=== PATIENT | male | born 1965 | race Two or more races ===

== ENCOUNTER 2016-10-02 10:30 | Emergency (ER) | payer MEDICAID ==
[~2016-10-02] VITALS: Ht 175.3 cm; Wt 99.8 kg
[2016-10-02 12:19] VITALS: BP 151/93
[2016-10-02] MEDS ORDERED: TETANUS-DIPTH-ACEL PERTUSSIS 0.5ML SYRG IM ONE (12:30)
[2016-10-02] MEDS ORDERED: KETOROLAC TROMETH 60MG/2ML VIAL IM ONE (12:30)
== END 2016-10-02 12:52 | disposition home or self-care (01) ==
LOC: ER 10:38
DX: S01.01XA Laceration without foreign body of scalp, initial encounter (principal); E11.9 Type 2 diabetes mellitus without complications; E78.5 Hyperlipidemia, unspecified; I10 Essential (primary) hypertension; Z86.73 Personal history of transient ischemic attack (TIA), and cerebral infarction without residual deficits; W22.8XXA Striking against or struck by other objects, initial encounter; Y93.89 Activity, other specified; Y99.9 Unspecified external cause status; Y92.89 Other specified places as the place of occurrence of the external cause; Z23 Encounter for immunization
CPT/HCPCS: 12002; 90471; 90715; 96372; 99284; J1885

== ENCOUNTER 2016-10-05 09:30 | Emergency (ER) | payer MEDICAID ==
[~2016-10-05] VITALS: Ht 175.3 cm; Wt 99.8 kg
[2016-10-05 09:41] VITALS: BP 147/99
== END 2016-10-05 12:08 | disposition home or self-care (01) ==
LOC: ER 09:36
DX: S01.01XD Laceration without foreign body of scalp, subsequent encounter (principal); E11.9 Type 2 diabetes mellitus without complications; I10 Essential (primary) hypertension; Z86.73 Personal history of transient ischemic attack (TIA), and cerebral infarction without residual deficits; X58.XXXD Exposure to other specified factors, subsequent encounter; Y93.89 Activity, other specified; Y99.8 Other external cause status; Y92.89 Other specified places as the place of occurrence of the external cause

== ENCOUNTER 2017-05-15 13:38 | Inpatient (IN) | payer MEDICAID ==
[~2017-05-15] VITALS: Ht 177.8 cm; Wt 103.2 kg
[2017-05-15] MEDS ORDERED: hydrALAZINE HCL 20 MG/ML VL IV ONE (14:30)
[2017-05-15] MEDS ORDERED: MORPHINE SULF INJ 2 MG/ML SYRINGE 1ML IV ONE (14:30)
[2017-05-15] MEDS ORDERED: ONDANSETRON HCL 4 MG/2 ML VIAL IV ONE (14:30)
[2017-05-15] MEDS ORDERED: PANTOPRAZOLE 40 MG/10 ML VIAL IV ONE (17:00)
[2017-05-15] MEDS ORDERED: HYDROcodone-ACET 5/325MG TAB PO PRN (17:00)
[2017-05-15] MEDS ORDERED: LISINOPRIL 10 MG TAB PO ONE (17:00)
[2017-05-15] MEDS ORDERED: DEXTROSE (50%) 50ML SYRG IV PRN (17:00)
[2017-05-15] MEDS ORDERED: MORPHINE SULF INJ 2 MG/ML SYRINGE 1ML IV PRN (17:00)
[2017-05-15] MEDS ORDERED: ONDANSETRON HCL 4 MG/2 ML VIAL IV PRN (17:00)
[2017-05-15 17:52] LABS: Basophils # (auto) 0.1 uL; Basophils % (auto) 0.8 % (0.0-2.0); Eosinophils # (auto) 0.1 uL; Eosinophils % (auto) 1.5 % (0.0-7.0); Hemoglobin 14.2 g/dL (13.5-17.5); Lymphocytes # (auto) 1.8 uL; Lymphocytes % (auto) 28.7 % (10.0-50.0); Mean Corpuscular Hemoglobin 29.1 pg (28.0-32.0); Mean Corpuscular Hgb Conc. 33.9 g/dL (32.0-36.0); Mean Corpuscular Volume 85.8 fL (80.0-100.0); Monocytes # (auto) 0.5 uL; Neutrophils # (auto) 3.8 uL; Nucleated Red Blood Cells % 0.1 %; Platelet Count (auto) 226 10^3/uL (140-450); Red Cell Distribution Width 13.6 % (11.8-14.3); White Blood Cell 6.3 10^3/uL (4.4-10.8)
[2017-05-15 18:05] LABS: INR 0.95 (0.9-1.15); Partial Thromboplastin Time 26.8 sec (22.64-33.71); Prothrombin Time 10.4 sec (9.37-12.3)
[2017-05-15 18:12] LABS: Albumin 3.3 g/dL (3.4-5.0); Alkaline Phosphatase 107 U/L (45-117); Amylase 53 U/L (25-115); Anion Gap 8 (5-15); Aspartate Aminotransferase 12 U/L (15-37); BUN/Creatinine Ratio 15.9; Bilirubin, Total 0.3 mg/dL (0.2-1.0); Blood Urea Nitrogen 13 mg/dL (7-18); Calcium 8.7 mg/dL (8.5-10.1); Carbon Dioxide 26 mmol/L (21-32); Chloride 103 mmol/L (98-107); GFR African American 126 mL/min; GFR Non-African American 104 mL/min; Glucose 240 mg/dL (74-106); Potassium 3.8 mmol/L (3.5-5.1); Sodium 137 mmol/L (136-145); Total Protein 7.1 g/dL (6.4-8.2)
[2017-05-15] MEDS: ACCU-CHEK COMFORT CURVE STRIP VI SCH (18:31)
[2017-05-15] MEDS: InsuLIN REG 1unit/0.01ml Soln (100units/ml) SC SCH (18:44)
[2017-05-15 20:00] VITALS: BP 146/96
[2017-05-15 20:30] VITALS: BP 146/96
[2017-05-15 22:00] VITALS: BP 116/74
[2017-05-16] MEDS: ACCU-CHEK COMFORT CURVE STRIP VI SCH ×5 (00:17→23:35)
[2017-05-16] MEDS: InsuLIN REG 1unit/0.01ml Soln (100units/ml) SC SCH ×5 (00:31→23:36)
[2017-05-16 05:00] VITALS: BP 106/73
[2017-05-16 06:23] LABS: Basophils # (auto) 0 uL; Basophils % (auto) 0.8 % (0.0-2.0); Eosinophils # (auto) 0.1 uL; Eosinophils % (auto) 1.8 % (0.0-7.0); Hematocrit 42.2 % (41.0-53.0); Hemoglobin 14.2 g/dL (13.5-17.5); Lymphocytes # (auto) 1.7 uL; Lymphocytes % (auto) 28.2 % (10.0-50.0); Mean Corpuscular Hemoglobin 28.9 pg (28.0-32.0); Mean Corpuscular Hgb Conc. 33.7 g/dL (32.0-36.0); Mean Corpuscular Volume 85.6 fL (80.0-100.0); Mean Platelet Volume 7.6 fL (6.9-10.8); Monocytes # (auto) 0.5 uL; Monocytes % (auto) 8.3 % (0.0-12.0); Neutrophils # (auto) 3.7 uL; Neutrophils % (auto) 60.9 % (37.0-80.0); Nucleated Red Blood Cells % 0.1 %; Platelet Count (auto) 214 10^3/uL (140-450); Red Cell Distribution Width 13.9 % (11.8-14.3); White Blood Cell 6.1 10^3/uL (4.4-10.8)
[2017-05-16 06:39] LABS: BUN/Creatinine Ratio 14.6; Calcium 8.4 mg/dL (8.5-10.1); Potassium 3.6 mmol/L (3.5-5.1)
[2017-05-16 08:30] VITALS: BP 132/93
[2017-05-16] MEDS: LISINOPRIL 10 MG TAB PO SCH (08:51)
[2017-05-16] MEDS ORDERED: PANTOPRAZOLE 40 MG/10 ML VIAL IV SCH (10:00)
[2017-05-16 12:35] VITALS: BP 135/95
[2017-05-16] MEDS ORDERED: INSLISPI SC (12:44)
[2017-05-16] MEDS ORDERED: METO10TA3 PO (12:44)
[2017-05-16] MEDS ORDERED: ASPI81TA27 PO (12:44)
[2017-05-16] MEDS ORDERED: LISI-646 PO (12:44)
[2017-05-16] MEDS ORDERED: METO-159 PO (12:44)
[2017-05-16] MEDS ORDERED: SIMV-13 PO (12:44)
[2017-05-16] MEDS ORDERED: HYDR-4663 PO (12:44)
[2017-05-16] MEDS ORDERED: METF-370 PO (12:44)
[2017-05-16] MEDS ORDERED: cefTRIAXone 1GM/50ML D5W 50 ML IV ONE (13:00)
[2017-05-16] MEDS: SOD CHL 0.45% 1,000 ML IV SCH (13:19)
[2017-05-16] MEDS: metroNIDAZOLE 500MG/100ML 100 ML IV SCH ×2 (14:29→21:59)
[2017-05-16] MEDS: cefTRIAXone 1GM/50ML D5W 50 ML IV SCH ×2 (14:56→21:16)
[2017-05-16 16:11] VITALS: BP 113/68
[2017-05-16 18:04] LABS: Urine Bilirubin Negative (Negative); Urine Blood Negative /uL (Negative); Urine Color Yellow (Yellow); Urine Glucose Normal (Normal); Urine Ketone Negative (Negative); Urine Nitrite Negative (Negative); Urine RBC <1 /hpf (0 - 3); Urine Squamous Epithelial Cell FEW /hpf (<5); Urine Urobilinogen Normal (Negative); Urine pH 5.5 (5.0-8.0)
[2017-05-16 20:00] VITALS: BP 135/97
[2017-05-16] MEDS ORDERED: cefTRIAXone 1GM/50ML D5W 50 ML IV SCH (21:00)
[2017-05-16 22:00] VITALS: BP 135/97
[2017-05-17] VITALS (7 sets, daily range): BP systolic 121–156; BP diastolic 83–96
[2017-05-17] MEDS: SOD CHL 0.45% 1,000 ML IV SCH ×2 (02:03→14:48)
[2017-05-17] MEDS: metroNIDAZOLE 500MG/100ML 100 ML IV SCH (05:48)
[2017-05-17] MEDS: InsuLIN REG 1unit/0.01ml Soln (100units/ml) SC SCH ×3 (05:48→18:19)
[2017-05-17] MEDS: ACCU-CHEK COMFORT CURVE STRIP VI SCH ×3 (05:48→18:18)
[2017-05-17 06:58] LABS: Basophils # (auto) 0 uL; Basophils % (auto) 0.6 % (0.0-2.0); Eosinophils # (auto) 0.1 uL; Eosinophils % (auto) 1.2 % (0.0-7.0); Hematocrit 41.5 % (41.0-53.0); Hemoglobin 14.2 g/dL (13.5-17.5); Lymphocytes # (auto) 1.3 uL; Lymphocytes % (auto) 19.4 % (10.0-50.0); Mean Corpuscular Hemoglobin 29.5 pg (28.0-32.0); Mean Corpuscular Hgb Conc. 34.2 g/dL (32.0-36.0); Mean Corpuscular Volume 86.1 fL (80.0-100.0); Mean Platelet Volume 7.9 fL (6.9-10.8); Monocytes # (auto) 0.4 uL; Monocytes % (auto) 6.3 % (0.0-12.0); Neutrophils # (auto) 4.9 uL; Neutrophils % (auto) 72.5 % (37.0-80.0); Nucleated Red Blood Cells % 0.1 %; Platelet Count (auto) 213 10^3/uL (140-450); Red Cell Distribution Width 13.6 % (11.8-14.3); White Blood Cell 6.8 10^3/uL (4.4-10.8)
[2017-05-17 07:27] LABS: BUN/Creatinine Ratio 9.9; Calcium 8.5 mg/dL (8.5-10.1); Potassium 3.6 mmol/L (3.5-5.1)
[2017-05-17] MEDS ORDERED: SODIUM CHLORIDE LOCK 10 ML ONE (08:53)
[2017-05-17] MEDS ORDERED: NALOXONE HCL 0.4 MG/ML VIAL ONE (08:53)
[2017-05-17] MEDS ORDERED: FLUMAZENIL 0.1 MG/ML INJ 10ML MDV IV ONE (08:53)
[2017-05-17] MEDS ORDERED: LIDOCAINE VISCOUS 2% 15ML UD ONE (08:53)
[2017-05-17] MEDS ORDERED: diphenhdrAMINE HCL 50 MG/1 ML VL ONE (08:54)
[2017-05-17] MEDS: fentaNYL CITRATE 100 MCG/2 ML VL ONE ×2 (09:23→09:26)
[2017-05-17] MEDS: MIDAZOLAM HCL 5 MG/ML-1ML VIAL ONE ×2 (09:23→09:26)
[2017-05-17] MEDS: PANTOPRAZOLE 40 MG TAB PO SCH ×2 (14:11→21:37)
[2017-05-17] MEDS: LISINOPRIL 10 MG TAB PO SCH (14:12)
[2017-05-18 05:02] VITALS: BP 125/80
[2017-05-18] MEDS: ACCU-CHEK COMFORT CURVE STRIP VI SCH ×3 (06:00→12:27)
[2017-05-18] MEDS: InsuLIN REG 1unit/0.01ml Soln (100units/ml) SC SCH ×3 (06:00→16:49)
[2017-05-18] MEDS: SOD CHL 0.45% 1,000 ML IV SCH (06:34)
[2017-05-18 07:30] VITALS: BP 137/95
[2017-05-18 08:48] VITALS: BP 147/89
[2017-05-18] MEDS: PANTOPRAZOLE 40 MG TAB PO SCH (09:19)
[2017-05-18] MEDS: LISINOPRIL 10 MG TAB PO SCH (09:20)
[2017-05-18 12:55] VITALS: BP 152/103
[2017-05-18 16:15] VITALS: BP 152/103
[2017-05-18 16:55] VITALS: BP 130/77
== END 2017-05-18 17:08 | disposition home or self-care (01) | DRG 241 ==
LOC: EDUNIT# 13:38 → ER 13:38 → OVERFLOW 13:39 → CENTRAL 19:20
PROVIDERS: ADMIT Internal Medicine; ATTEND Internal Medicine Pulmonary Disease
PROC: 0DB78ZX Excision of Stomach, Pylorus, Via Natural or Artificial Opening Endoscopic, Diagnostic (ICD-10-PCS; principal; 2017-05-17 09:18)
DX: K29.70 Gastritis, unspecified, without bleeding (principal); I42.9 Cardiomyopathy, unspecified; K31.84 Gastroparesis; E11.43 Type 2 diabetes mellitus with diabetic autonomic (poly)neuropathy; E44.1 Mild protein-calorie malnutrition; N20.1 Calculus of ureter; K76.0 Fatty (change of) liver, not elsewhere classified; K57.92 Diverticulitis of intestine, part unspecified, without perforation or abscess without bleeding; I10 Essential (primary) hypertension; E78.5 Hyperlipidemia, unspecified; E66.9 Obesity, unspecified; F31.9 Bipolar disorder, unspecified; K20.9 Esophagitis, unspecified; K44.9 Diaphragmatic hernia without obstruction or gangrene; B96.81 Helicobacter pylori [H. pylori] as the cause of diseases classified elsewhere; K57.30 Diverticulosis of large intestine without perforation or abscess without bleeding; N20.0 Calculus of kidney; Z86.73 Personal history of transient ischemic attack (TIA), and cerebral infarction without residual deficits; Z79.899 Other long term (current) drug therapy; Z68.32 Body mass index [BMI] 32.0-32.9, adult
CPT/HCPCS: 36415; 43239; 71010; 74176; 76705; 80048; 80053; 81001; 82150; 82962; 83036; 83690; 84484; 85025; 85610; 85730; 87045; 87493; 87899; 93005; 94761; 96374; 96375; C9113; J0696; J1815; J2250; J2405; J3490